=== PATIENT | female | born 1975 | race Caucasian/White ===

== ENCOUNTER → 2020-05-08 15:55 | Outpatient (CLI) | payer OTHER, SELFPAY ==
--- NOTE | ~2020-05-08 | MM_ITS ---
EXAMINATION: MM screening [facility] BI w susie HISTORY: Screening mammogram TECHNIQUE: Craniocaudal and mediolateral oblique 3-D tomosynthesis images were obtained and synthetic 2-D images were generated. CAD analysis was submitted and interpreted. COMPARISON: 03/18/2019, 03/11/2018, 03/06/2013 BREAST PARENCHYMAL COMPOSITION: There are scattered areas of fibroglandular density. FINDINGS: RIGHT BREAST: There is no evidence of suspicious mass, calcification, or architectural distortion to suggest malignancy. There has been no significant interval change. LEFT BREAST: There is asymmetry and possible architectural distortion in the posterior third of the b reast best appreciated 8 cm from the nipple on the craniocaudal view. IMPRESSION: 1. Asymmetry and possible architectural distortion of the left breast. 2. Additional mammographic views and possible breast ultrasound are recommended. BI-RADS Category 0: Incomplete: Needs additional imaging evaluation. Reviewed, dictated and finalized at location A. ACE TENDER IMPRESSION: 1. Asymmetry and possible architectural distortion of the left breast. 2. Additional mammographic views and possible breast ultrasound are recommended . BI-RADS Category 0: Incomplete: Needs additional imaging evaluation.
== END ==
PROVIDERS: Visit Provider Advanced Practice Midwife
DX: Z12.31 Encounter for screening mammogram for malignant neoplasm of breast (principal); R92.8 Other abnormal and inconclusive findings on diagnostic imaging of breast
CPT/HCPCS: 77063; 77067

== ENCOUNTER → 2020-05-31 08:09 | Outpatient (CLI) | payer OTHER, SELFPAY ==
--- NOTE | ~2020-05-31 | MM_ITS ---
EXAMINATION: MM diagnostic mammo unilat LT HISTORY: Asymmetry and possible architectural distortion of the left breast on screening mammogram TECHNIQUE: Additional 3-D tomosynthesis images of the left breast were performed and synthetic 2-D im ages were generated. CAD analysis was submitted and interpreted. COMPARISON: 05/08/2020, 03/18/2019, 03/11/2018 FINDINGS: There is no architectural distortion or persistent asymmetry with spot compression of the l eft breast. There is no evidence of suspicious mass or calcification to suggest malignancy. IMPRESSION: 1. No mammographic evidence of malignancy. 2. Recommend routine screening mammography in one year. BI-RADS Category 1: Negative Reviewed, dictated and finalized at location A. ATION GENERAL MANAGER
== END ==
PROVIDERS: PCP Family Medicine; Visit Provider Advanced Practice Midwife
DX: R92.8 Other abnormal and inconclusive findings on diagnostic imaging of breast (principal)
CPT/HCPCS: 77065

== ENCOUNTER → 2021-05-12 11:40 | Outpatient (CLI) | payer OTHER, SELFPAY ==
--- NOTE | ~2021-05-12 | MM_ITS ---
EXAMINATION: MM screening [facility] [place] BI w susie HISTORY: Screening mammogram TECHNIQUE: Craniocaudal and mediolateral oblique 3-D tomosynthesis images were obtained and synthetic 2-D images were generated. CAD analysis was submitted and interpreted. COMPARISON: 05/31/2020, 05/08/2020, 03/18/2019 BREAST PARENCHYMAL COMPOSITION: There are scattered areas of fibroglandular density. FINDINGS: There is no evidence of suspicious mass, calcification, or architectural distortion to sugg est malignancy in either breast. There has been no suspicious interval change. IMPRESSION: 1. No mammographic evidence of malignancy. 2. Recommend routine screening mammography in one year. BI-RADS Category 1: Negative Reviewed, dictated and finalized at location A. LE BASS PLAYER
== END ==
PROVIDERS: PCP Family Medicine; Visit Provider Advanced Practice Midwife
DX: Z12.31 Encounter for screening mammogram for malignant neoplasm of breast (principal)
CPT/HCPCS: 77063; 77067

== ENCOUNTER → 2022-07-17 15:06 | Outpatient (CLI) | payer BC, SELFPAY ==
--- NOTE | ~2022-07-17 | MM_ITS ---
EXAMINATION: MM screening [facility] BI w susie HISTORY: Screening mammogram TECHNIQUE: Craniocaudal and mediolateral oblique 3-D tomosynthesis images were obtained and synthetic 2-D images were generated. CAD analysis was submitted and interpreted. COMPARISON: 05/12/2021 bilateral screening mammogram 05/31/2020 diagnostic left mammogram 05/08/2020, 03/18/2019 bilateral screening mammogram examinations BREAST PARENCHYMAL COMPOSITION: There are scattered areas of fibroglandular density. FINDINGS: There is no evidence of suspicious mass, calcification, or architectural distortion to sugg est malignancy in either breast. There has been no suspicious interval change. IMPRESSION: 1. No mammographic evidence of malignancy. 2. Recommend routine screening mammography in one year. BI-RADS Category 1: Negative Reviewed, dictated and finalized at location A. RVISOR FISH BAIT PROCESSING
== END ==
PROVIDERS: PCP Emergency Medicine; Visit Provider Nurse Practitioner Obstetrics & Gynecology
DX: Z12.31 Encounter for screening mammogram for malignant neoplasm of breast (principal)
CPT/HCPCS: 77063; 77067

== ENCOUNTER 2023-06-11 00:26 | Day surgery (SDC) | payer BC, SELFPAY ==
[2023-05-18 10:13] VITALS: BMI 35.2
--- NOTE | 2023-06-09 08:25 | SUR.PREOP ---
Patient called regarding upcoming procedure. Reviewed preop instructions, appointment times, and procedure prep.
[2023-06-11 07:25] VITALS: BP 126/75; PULSE 77; RESP 20; TEMP 36.8; O2SAT 100
[2023-06-11] MEDS: LACTATED RINGERS 1,000 ML 150 ML IV CONT (07:44)
--- NOTE | 2023-06-11 08:18 | WPDANESEPPF ---
Anes - Initial Pre Proc Eval Procedure: Operation Date: 06/11/23 08:30 Proposed Procedures p Screening Colonoscopy - Mt Kelley MD Date/Time: 06/11/23 08:18 Surgeon: Mt Kelley MD Pre Op Diagnosis: neoplasm screening Patient Data Age: 47 Gender: F Height: 1.63 m Weight: 91.1 kg Last Vital Signs Temp 98.3 F 06/11/23 07:25 Pulse 77 06/11/23 07:25 Resp 20 06/11/23 07:25 BP 126/75 06/11/23 07:25 Pulse Ox 100 06/11/23 07:25 O2 Del Method Room Air 06/11/23 07:25 Allergies Allergy/AdvReac Type Severity Reaction Status Date / Time No Known Allergies Allergy Mild Verified 06/11/23 07:24 Home Medications Medication Instructions Recorded Confirmed Type bupropion HCl 450 mg 24 hr tablet, 450 mg PO QAM 05/20/22 05/18/23 History extended release cetirizine 10 mg tablet (Zyrtec) 10 mg PO DAILY PRN Sinus Symptoms 05/20/22 05/18/23 History mecobalamin (vitamin B12) 1,000 1,000 mcg PO DAILY 05/20/22 05/18/23 History mcg chewable tablet multivitamin (Daily Multi-Vitamin 1 tablet PO DAILY 05/20/22 05/18/23 History tablet) omega-3 fatty acids 500 mg capsule 500 mg PO DAILY 02/12/23 05/18/23 History Patient hx anesthesia problems: none Family hx anesthesia problems: none Results Review: All pre-operative results and documents have been reviewed as part of the pre-operative evaluation. [facility] Past Medical History Medical History (Updated 02/13/23 @ 09:22 by Frank Mancilla MD) Acute sinusitis, unspecified Other obesity Surgical History Surgical History (Updated 02/12/23 @ 09:51 by Frank Mancilla MD) History of weight loss surgery (~2015) Family History Family History (Updated 02/12/23 @ 09:15 by Archana Jones) Grandparent Carcinoma of colon Breast cancer Mother Acute myocardial infarction Social History Social History (Updated 02/12/23 @ 09:15 by Archana Jones) Social History: Caffeine- coffee Smoking status: Never smoker Alcohol intake: current Alcohol use details: rare occasional Substance use: never Substance use type: does not use Lack of Transportation: No Lack of Food: Never True Current Housing: I Have Housing Concerned About Future Housing: No Difficulty Paying Gas/Electric Bills: No Difficulty Paying for Meds: No Currently Unemployed: No Education: High School Diploma/GED Difficulty w/ Childcare or Family Care: No Living arrangements: with family Spiritual care concerns: No Anes - Eval Final PreProcedure Day of Procedure 06/11/23 08:18 Patient weight: obese Heart: regular rate and rhythm Lungs: clear to auscultation Airway: Mallampati scale class II Neurological: alert and oriented Last oral intake: >/= 8 hours ASA classification: II Emergent: no Anesthetic plan: proceed Anesthesia type and monitoring: general GIVS and standard monitoring Results Review: All pre-operative results and documents have been reviewed as part of the pre-operative evaluation. Informed Consent: The patient's anesthetic plan and its attendant risks and benefits were discussed with the patient/family/POA. Questions were solicited and answers provided to the satisfaction of the patient/family/POA.
--- NOTE | 2023-06-11 08:18 | PM.HPGS ---
History of Present Illness History of Present Illness Consent: Risks, benefits, and alternatives have been discussed and questions answered. Patient agrees to proceed with procedure. Chief complaint: neoplasm screening Narrative: Kaylee Esteban I is a 47 year old female here for first screening colonoscopy Review of Systems Constitutional: Constitutional: Denies headache(s) and Denies weakness Eyes: Eyes: Denies blurry vision ENT: Reports Normal hearing present, Denies headache(s) and Denies neck pain Cardiovascular: Cardiovascular: Denies chest pain and Denies dyspnea Respiratory: Respiratory: Denies dyspnea Gastrointestinal: Gastrointestinal: Reports no additional gastrointestinal complaints Genitourinary: Genitourinary: Denies dysuria Musculoskeletal: Musculoskeletal: Denies neck pain Integumentary/Breasts: Skin/Breast: Denies dry skin Neurologic: Reports Normal hearing present, Denies headache(s) and Denies weakness Psychiatric: Psychiatric: Denies anxiety Endocrine: Endocrine: Denies change in body appearance Hematologic/Lymphatic: Hematologic/Lymphatic: Denies easy bleeding Allergic/Immunologic: Allergic/Immunologic: Denies urticaria PMFSH Past Medical History Medical History (Updated 02/13/23 @ 09:22 by Frank Mancilla MD) Acute sinusitis, unspecified Other obesity Surgical History Surgical History (Updated 02/12/23 @ 09:51 by Frank Mancilla MD) History of weight loss surgery (~2016) Family History Family History (Updated 02/12/23 @ 09:15 by Archana Jones) Grandparent Carcinoma of colon Breast cancer Mother Acute myocardial infarction Social History Social History (Updated 02/12/23 @ 09:15 by Archana Jones) Social History: Caffeine- coffee Smoking status: Never smoker Alcohol intake: current Alcohol use details: rare occasional Substance use: never Substance use type: does not use Lack of Transportation: No Lack of Food: Never True Current Housing: I Have Housing Concerned About Future Housing: No Difficulty Paying Gas/Electric Bills: No Difficulty Paying for Meds: No Currently Unemployed: No Education: High School Diploma/GED Difficulty w/ Childcare or Family Care: No Living arrangements: with family Spiritual care concerns: No Meds Home Medications and Allergies Home Medications Medication Instructions Recorded Confirmed Type bupropion HCl 450 mg 24 hr tablet, 450 mg PO QAM 05/20/22 05/18/23 History extended release cetirizine 10 mg tablet (Zyrtec) 10 mg PO DAILY PRN Sinus Symptoms 05/20/22 05/18/23 History mecobalamin (vitamin B12) 1,000 1,000 mcg PO DAILY 05/20/22 05/18/23 History mcg chewable tablet multivitamin (Daily Multi-Vitamin 1 tablet PO DAILY 05/20/22 05/18/23 History tablet) omega-3 fatty acids 500 mg capsule 500 mg PO DAILY 02/12/23 05/18/23 History Allergies Allergy/AdvReac Type Severity Reaction Status Date / Time No Known Allergies Allergy Mild Verified 06/11/23 07:24 Vital Signs Vital Signs - 24 hr 06/11/23 07:25 Temperature 98.3 F Pulse Rate 77 Respiratory Rate 20 Blood Pressure 126/75 Pulse Oximetry 100 Oxygen Delivery Room Air Exam Const: General: comfortable and no acute distress HENMT: Face/Nose/Sinus: Normal nares present Eyes: General: appearance normal, both eyes and all related structures Neck: Neck: no JVD Resp: Auscultation: clear to auscultation bilaterally Cardio: Rate: regular rate Rhythm: regular rhythm GI: Inspection: non-distended GI Palp: Yes Soft to palpation Skin: General skin exam: normal color Neuro: General: gait normal Speech: normal speech Extrem: General: normal to inspection Psych: Mental Status: mental status grossly normal Assessment and Plan Assessment and plan (1) Encounter for screening colonoscopy: Code(s): Z12.11 - Encounter for screening for malignant neoplasm of colon Status: Acute Asse
[2023-06-11 08:36] VITALS: BP 111/60; PULSE 74; RESP 20; O2SAT 98
[2023-06-11 08:46] VITALS: BP 123/91; PULSE 64; RESP 20; O2SAT 98
[2023-06-11 08:56] VITALS: BP 130/80; PULSE 60; RESP 20; O2SAT 99
== END 2023-06-11 09:08 | disposition home or self-care (01) ==
PROVIDERS: PCP Emergency Medicine; Visit Provider Internal Medicine Gastroenterology
PROC: 0DJD8ZZ Inspection of Lower Intestinal Tract, Via Natural or Artificial Opening Endoscopic (ICD-10-PCS; CPT 45378; principal; 2023-06-11 08:30)
DX: Z12.11 Encounter for screening for malignant neoplasm of colon (principal); K64.8 Other hemorrhoids; E66.9 Obesity, unspecified; Z68.34 Body mass index [BMI] 34.0-34.9, adult
CPT/HCPCS: 45378; J2704; J7120

== ENCOUNTER 2023-08-17 12:30 | Outpatient (CLI) | payer BC, SELFPAY ==
--- NOTE | ~2023-08-17 | MM_ITS ---
EXAMINATION: MM screening [facility] BI w susie HISTORY: Screening mammogram TECHNIQUE: Craniocaudal and mediolateral oblique 3-D tomosynthesis images were obtained and synthetic 2-D images were generated. CAD analysis was submitted and interpreted. COMPARISON: July 17, 2022, May 12, 2021 bilateral screening mammogram examinations BREAST PARENCHYMAL COMPOSITION: There are scattered areas of fibroglandular density. FINDINGS: There is no evidence of suspicious mass, calcification, or architectural distortion to sugg est malignancy in either breast. There has been no suspicious interval change. IMPRESSION: 1. No mammographic evidence of malignancy. 2. Recommend routine screening mammography in one year. BI-RADS Category 1: Negative Reviewed, dictated and finalized at location A.
== END 2023-08-17 12:31 ==
PROVIDERS: PCP Emergency Medicine; Visit Provider Nurse Practitioner Obstetrics & Gynecology
DX: Z12.31 Encounter for screening mammogram for malignant neoplasm of breast (principal)
CPT/HCPCS: 77063; 77067

== ENCOUNTER 2024-08-18 10:04 | Outpatient (CLI) | payer BC, SELFPAY ==
--- NOTE | ~2024-08-18 | MM_ITS ---
EXAMINATION: MM screening [facility] BI w susie HISTORY: Screening TECHNIQUE: Craniocaudal and mediolateral oblique 3-D tomosynthesis images were obtained and synthetic 2-D images were generated. CAD analysis was submitted and interpreted. COMPARISON: 08/17/2023 and dating back to 05/08/2020 BREAST PARENCHYMAL COMPOSITION: There are scattered areas of fibroglandular density. FINDINGS: Punctate calcifications are detected bilaterally, stable and benign in appearance. Stable parenchymal pattern without suspicious microcalcifications, architectural distortion, discrete masses or significant asymmetry. IMPRESSION: 1. No mammographic evidence of malignancy. 2. Recommend routine screening mammography in one year. BI-RADS Category 2: Benign finding(s). Reviewed, dictated and finalized at location A.
== END 2024-08-18 10:05 | disposition home or self-care (01) ==
LOC: MICIMG 10:05
PROVIDERS: PCP Obstetrics & Gynecology; Visit Provider Obstetrics & Gynecology
DX: Z12.31 Encounter for screening mammogram for malignant neoplasm of breast (principal)
CPT/HCPCS: 77063; 77067

== ENCOUNTER 2024-11-23 15:32 | Emergency (ER) | payer BC, SELFPAY ==
--- NOTE | ~2024-11-23 | XR_ITS ---
XR ankle LT min 3V Ordering provider: Kinjal Viveros APRN History: . pain injury 2 weeks . Comparison: None. FINDINGS: BONES: No acute fracture or dislocation. JOINT SPACES: The ankle mortise is normal. SOFT TISSUES: Normal. Calcaneal spur. IMPRESSION: No acute osseous abnormality left ankle. Reviewed, dictated and finalized at location A.
--- OUTSIDE RECORDS SUMMARY | 2024-11-23 15:34 | XMS_ITS | Referral Summary ---
Author Organization [facility] Address [address] [place] [address] Care Team Providers Care Cheese Maker Name Role Phone Fausto Rodriguez MD Primary Care Provider [phone] Allergies Active Allergy Reactions Criticality Noted Date Comments Nitrofurantoin Itching Low 07/26/2022 Medications loratadine (CLARITIN) 10 mg tablet TAKE 1 TABLET AT BEDTIME. 6 Active biotin 10 mg tablet Active calcium citrate-vitamin D3 250 mg calcium- 200 unit tablet Active multivitamin tabletIndications:V itamin Deficiency Prevention Active olopatadine (PATADAY) 0.2 % ophthalmic solutionIndications :Allergic Conjunctivitis daily. 6 Active cyanocobalamin (Vitamin B-12) 100 mcg tabletIndications:P revention of Vitamin B12 Deficiency Active buPROPion XL (WELLBUTRIN XL) 300 mg 24 hr tablet 8 Active vitamin E (AQUASOL E) 100 unit capsule Take 100 Units by mouth daily Active fluconazole (DIFLUCAN) 150 mg tabletIndications:A ntibiotic-induced yeast infection Take 1 tablet (150 mg total) by mouth as directed Take one tab now. Repeat in 7 days if symptoms persist. 2 tablet 3 Active Active Problems Problem Noted Date Diagnosed Date History of bariatric surgery 11/02/2016 Intestinal malabsorption 11/02/2016 BMI 45.0-49.9, adult 05/06/2016 Eating disorder 10/30/2015 Morbid obesity 09/19/2015 Social History Tobacco Use Types Packs/Day Years Used Date Smoking Tobacco: Never Comments Unknown Sex and Gender Information Value Date Recorded Sex Assigned at Not on file Legal Sex Female 11:18 AM X RAY DEVELOPER Gender Identity Female 07/11/2019 12:58 PM X RAY DEVELOPER Sexual Orientation Straight 07/11/2019 12 :58 PM X RAY DEVELOPER Last Filed Vital Signs Vital Sign Reading Time Taken Comments Blood Pressure 128/68 07/26/2022 1:55 PM X RAY DEVELOPER Pulse 61 07/05/2019 8:01 AM X RAY DEVELOPER Temperature 37.1 C (98.8 F) 07/26/2022 1:55 PM X RAY DEVELOPER Respiratory Rate 19 07/26/2022 1:55 PM X RAY DEVELOPER Oxygen Saturation 98% 05/21/2016 12: 30 PM X RAY DEVELOPER Inhaled Oxygen Concentration - - Weight 89.7 kg (197 lb 12.8 oz) 07/26/2022 1:55 PM X RAY DEVELOPER Height 161.3 cm (5' 3.5) 07/26/2022 1:55 PM X RAY DEVELOPER Body Mass Index 34.49 07/26/2022 1:55 PM X RAY DEVELOPER Plan of Treatment Not on file Insurance [facility] CHOICE PLUS CHOICE PRF PPO [place] Care Teams Cheese Maker Relationship Specialty Start Date End Date Fausto Rodriguez MD [address] [place] [address] PCP - General 09/22/16
--- OUTSIDE RECORDS SUMMARY | 2024-11-23 15:34 | XMS_ITS | Clinical Summary ---
Author Organization [facility] Address [address] [place] [id number] Care Team Providers Care Delinquent Tax Collection Assistant Name Role Phone Unavailable Primary Care Provider Unavailabl e Social History Tobacco Use Types Packs/Day Years Used Date Smoking Tobacco: Never Assessed Comments Unknown Sex and Gender Information Value Date Recorded Sex Assigned at Not on file Legal Sex Female 6:08 PM CDT Gender Identity Not on file Sexual Orientation Not on file Plan of Treatment Health Maintenance Due Date Last Done Comments Cervical Cancer Screening Pa p Smear (Age 30 to 64) Every 3 Years 1977 Colorectal Cancer Screening Colonoscopy (10 Years) 1977 Annual Physical 1980 Hepatitis C 10/07/1995 DTaP, Tdap and Td Vaccines ( 1 - Tdap) 1996 Hepatitis B Vaccines (1 of 3 - 19+ 3-dose series) 1996 Cervical Cancer Screening Pa p with HPV Testing (Age 30 to 64) Every 5 Years 10/07/2007 Cervical Cancer Screening with HPV 10/07/2007 Mammogram Screening 2017 COVID-19 Vaccine (2023-2 5 season) 2024 Meningococcal B Vaccine Aged Out No l onger eligible based on patient's age to complete this topic Meningococcal Vaccine Aged Out No asiya kimmy eligible based on patient's age to complete this topic Pneumococcal Vaccine: Pediat rics (0 to 5 Years) and At-Risk Patients (6 to 49 Years) Aged Out No longer eligible b ased on patient's age to complete this topic RSV Immunizations Under 20 Months Aged Out No longer eligible based on patient's age to complete this topic
--- OUTSIDE RECORDS SUMMARY | 2024-11-23 15:34 | XMS_ITS | Clinical Summary ---
Author Organization [facility] Address [address] [place] [address] Care Team Providers Care Enameler Name Role Phone Fausto Rodriguez MD Primary Care Provider [phone] Allergies Active Allergy Reactions Criticality Noted Date [...] 05/06/2016 Eating disorder 10/30/2015 Morbid obesity 09/19/2015 Surgical History Surgery Date Site/Laterality Comments SLEEVE GASTROPLASTY Medical History Medical History Date Comments History of section History of tonsillectomy History of sleeve gastrectomy 05/19/2016 Family History Medical History Relation Name Comments Heart disease Mother Family history of cardiac disorder - (Added by TW Conv) Hypertension Mother Family history of hypertension - (Added by TW Conv) Obesity Mother Family history of obesity - (Added by TW Conv) Obesity Other 1 Family history of obesity - Relation: Grandparent (Added by TW Conv) Heart disease Other 2 Family history of cardiac disorder - Relation: Grandparent (Added by TW Conv) Hypertension Other 3 Family history of hypertension - Relation: Grandparent (Added by TW Conv) Cancer Other 4 Family history of malignant neoplasm - Relation: Grandparent (Added by TW Conv) Relation Name Status Comments Mother Other 1 Other 2 Other 3 Other 4 Social History Tobacco Use Types Packs/Day Years Used Date Smoking Tobacco: Never Comments Unknown Sex and Gender Information Value Date Recorded Sex Assigned at Not on file Legal Sex Female 11:18 AM PROCUREMENT INTERNSHIP Gender Identity Female 07/11/2019 12:58 PM PROCUREMENT INTERNSHIP Sexual Orientation Straight 07/11/2019 12 :58 PM PROCUREMENT INTERNSHIP Obstetrics History Last Filed Vital Signs Vital Sign Reading Time Taken Comments Blood Pressure 128/68 07/26/2022 1:55 PM PROCUREMENT INTERNSHIP Pulse 61 07/05/2019 8:01 AM PROCUREMENT INTERNSHIP Temperature 37.1 C (98.8 F) 07/26/2022 1:55 PM PROCUREMENT INTERNSHIP Respiratory Rate 19 07/26/2022 1:55 PM PROCUREMENT INTERNSHIP Oxygen Saturation 98% 05/21/2016 12: 30 PM PROCUREMENT INTERNSHIP Inhaled Oxygen Concentration - - Weight 89.7 kg (197 lb 12.8 oz) 07/26/2022 1:55 PM PROCUREMENT INTERNSHIP Height 161.3 cm (5' 3.5) 07/26/2022 1:55 PM PROCUREMENT INTERNSHIP Body Mass Index 34.49 07/26/2022 1:55 PM PROCUREMENT INTERNSHIP Plan of Treatment Health Maintenance Due Date Last Done Comments Breast Cancer Screening-Mammogram 1977 Cervical Cancer Screening 1977 Colon Cancer Screening-Colonoscopy 1977 Depression Screening 1977 Hepatitis C Screening 1977 Hepatitis B Screening 10/07/1995 Regular Well Visit/Exam 18-64 10/07/1995 Influenza Vaccine (#1) 2025 8, 03/13/2015 DTaP/Tdap/Td Vaccine (2 - Td or Tdap) 03/04/2028 03/04/2018 Pneumococcal vaccine <65 Aged Out No longer eligible based on patient's age to complete this topic Insurance [facility] CHOICE PLUS CHOICE PRF PPO [place] Care Teams Enameler Relationship Specialty Start Date End Date Fausto Rodriguez MD [address] [place] [address] (work) PCP - General 09/22/16
--- OUTSIDE RECORDS SUMMARY | 2024-11-23 15:35 | XMS_ITS | Data Portability ---
Author Organization [facility] Address [address] [place] [address] Care Team Providers Care Waitress Name Role Phone ROSALVA WILFRID Primary Care Provider WENDY SIERRA Primary Care Provider [phone] MAX MEDINA Primary Care Provider Assessment Encounter Date Assessment Date Assessment LastModified by Organization Details LastModified Time 03/15/2020 03/15/2020 Annual gynecological exam performed. Patient will come back in a year unless there are new symptoms. [email or web address] Not available 03/15/2020 14:43:13 04/11/2021 04/11/2021 Annual gynecological exam performed. Patient will come back in a year unless there are new symptoms. Suggest Calcium with Vitamin D if not eating in diet. Patient advised to get annual flu shot. Recommend yearly physicals and preform monthly breast exams. Genetic testing is available for patients with family history of cancer. Engage in safe sexual practices, use condoms. Encouraged to have daily exercise. Avoid tobacco and illicit drugs, moderation of alcohol. If BMI greater than 25 dietary consult advised. If you have any questions please call or email. pt on max dose of wellbutrin, rec take divided doses , mammogram order given Not available 04/11/2021 11:36:21 04/29/2022 04/29/2022 Annual gynecological exam performed. Patient will come back in a year unless there are new symptoms. [email or web address] Not available 04/29/2022 15:45:43 05/11/2023 05/11/2023 Annual gynecological exam performed. Patient will come back in a year unless there are new symptoms. [email or web address] Not available 05/11/2023 15:32:40 05/15/2024 05/15/2024 Annual gynecological exam performed. Patient will come back in a year unless there are new symptoms. [email or web address] Not available 05/15/2024 09:08:32 Plan of Treatment Reminders Order Date Submit Date Provider Last Modified By Organization Details Last Modified Time Details Appointments None recorded. Lab CBC w/ auto diff 2023 [facility] (Lab), [address], [place], [address], 5 05:26:35 CMP, serum or plasma 2023 024 [facility] (Lab), [address], [place], [address], 5 05:26:36 lipid panel, blood 2023 024 [facility] (Lab), [address], [place], [address], 5 05:26:36 TSH, serum or plasma 2023 024 [facility] (Lab), [address], [place], [address], 5 05:26:36 HbA1c (hemoglobi n A1c), blood 2023 024 [facility] (Lab), [address], [place], [address], 5 05:26:36 CMP, serum or plasma 2021 022 [facility] (Lab), [address], [place], [address], 2 11:41:39 lipid panel, blood 2021 022 [facility] (Lab), [address], [place], [address], 2 11:41:39 HbA1c (hemoglobi n A1c), blood 2021 022 [facility] (Lab), [address] [facility] [facility], [place], [address], 3 05:01:34 CBC w/ auto diff 2021 022 [facility] (Lab), [address], [place], [address], 2 11:41:39 TSH, serum or plasma 2021 [facility] (Lab), [address], [place], [address], 2 11:41:39 Referral primary care provider referral 2021 [facility] Not available 3 05:01:34 Procedures None recorded. Surgeries None recorded. Imaging MAMMO, screening, digital, bilateral 2023 024 [facility], [address], [place], [address], 5 05:01:25 MAMMO, screening, bilateral 2022 023 [email or web address] [facility], [address], [place], [address], 4 15:35:02 MAMMO, screening, bilateral 2021 022 [facility], [address], [place], [address], 3 18:32:36 Medication Orders bupropion HCl XL 150 mg 24 hr tablet, extended release 2023 024 [facility], [address] [place], [address], 4 09:22:29 bupropion HCl XL 300 mg 24 hr tablet, extended release 2023 024 [facility], [address] [place], [address], 4 09:22:29 bupropion HCl XL 150 mg 24 hr tablet, extended release 2022 023 [facility], [address] [place], [address], 3 15:50:20 bupropion HCl XL 300 mg 24 hr tablet, extended release 2022 023 [facility], [address] [place], [address], 3 15:50:20 bupropion HCl XL 150 mg 24 hr tablet, extended release 2021 022 [place] [facility], [address] [place] [address], [address], [place], [place], [id number], 2 16:05:54 bupropion HCl XL 300 mg 24 hr tablet, extended release 2021 022 [place] [address] [facility], [address] [place] [address], [address], [place], [place], [id number], 2 21:03:45 Wellbutrin XL 150 mg 24 hr tablet, extended release 2020 021 [facility], [address] [place], [address], 1 11:36:01 Wellbutrin XL 300 mg 24 hr tablet, extended release 2020 021 [facility], [address] [place], [address], 1 11:36:01 Wellbutrin XL 300 mg 24 hr tablet, extended release 2019 020 [facility], [address] [place] [address], [address], 0 16:35:09 Patient TargetsNo targets recorded. Patient Instructions Encounter Date Encounter Id Patient Instructions Last Modified By Organization Details Last Modified Time 03/15/2020 [id number] mammogram order given, counseling list, monitor cycles, call if needs anything, rf wellbutrin. Suggest Calcium with Vitamin D if not eating in diet. Patient advised to get annual flu shot. Recommend yearly physicals and preform monthly breast exams. Genetic testing is available for patients with family history of cancer. Engage in safe sexual practices, use condoms. Encouraged to have daily exercise. Avoid tobacco and illicit drugs, moderation of alcohol. If BMI greater than 25 dietary consult advised. If you have any questions please call or email. [email or web address] Not available 03/15/2020 15:10:34 Reason for Referral Primary Care Provider Referr al for Adult health examination Referring Physician: Agatha Lane, EASTER BUNNY, Encounter Date: 04/29/2022 Results Created Date Observation Date Name Description Value Unit Range Abnormal Flag Note LastModifiedBy Organization Detail LastModifiedTime 03/15/20 20 03/28/2020 pap, LB Pap test thin prep Negati ve for Intrae pithel ial Lesion or Malign aurelio normal ACCES SUJIT #: [id number] Sourc e: Cervi rolando/E ndoce rvica l LMP: 03/03 Date Taken : 03/15 Speci men Type: ThinP rep Vial Date Repor becky: 2019 Clini rolando Data: Cytot ech: Marty allison Carne y, CT( CP) Date Repor becky: 03/18 Speci men Adequ acy: Satis facto ry for evalu ation Endoc ervic al/tr ansfo rmati on zone compo nent prese nt Gener al Categ oriza tion: NEGAT NORMAN FOR INTRA EPITH ELIAL LESIO N OR MALIG MOLLY The follo wing tests have been order ed as reque sted and a separ ate repor t will be issue d: Broam keniaa, Gonor rhoea e, and Trich omona s This speci men has been dwight zed by the ThinP rep Imagi claus chatman, an inter activ e compu johns which molina ts the lab in the mar vasquezg of ThinP rep Pap Test slide sRachana dillon imagi ng, the slide was revie wed by a Cytot echno logis t and/o r Patho logis t. D N A A S S A Y S R E P O R T TEST NAME RESUL TS ----- ---- ----- -- HPV High Risk Mar syed (TMA) ThinP rep Vial The human papil lomav irus (HPV) High Risk Mar syed is an FDA-a pprov ed in-vi tro ampli fied nucle ic acid test for the quali tativ e detec tion of E6/E7 viral mRNA. Resul ts shoul d be corre lated with patie nt prese ntati on, histo ry, cervi rolando cytol ogy and other clini rolando and labor atory findi ngs. See https ://Fast Orientation/s ites/ defau lt/fi les/2 018-0 3/AW- 70350 _002_ 01.pd f for john syed. Test perfo rmed by [facility], d/b/a Path [facility], [address], [place] [address] , Salud Espinosa ra, DO, Labor atory [facility]. HPV High Risk *HPV NOT DETEC BECKY (TYPE S 16, 18, 31, 33, 35, 39, 45, 51, 52, 56, 58, 59, 66, 68) *HPV: The human papil lomav irus (HPV) High Risk Mar syed is an FDA-a pprov ed in-vi tro ampli fied nucle ic acid test for the quali tativ e detec tion of E6/E7 viral mRNA. Resul ts shoul d be corre lated with patie nt prese ntati on, histo ry, cervi rolando cytol ogy and other clini rolando and labor atory findi ngs. See https ://ww w.Cloud Direct/s ites/ defau lt/fi les/2 018-0 3- 53431 _002_ 01.pd f for john clare burgosr charmaine syed. Test perfo rmed by [employer] [facility] [employer], [employer], d/b/a Path [facility], [address], [place] [address] , Salud Espinosa ra, DO, Labor atory Dire tor. End of t Techn ical servi delmer provi ded by [facility], d/b/a [facility], [address] [place] [address] Rodrigo Jane MD, [facility]. Case revie wed and diagn osis rende red at [facility], [employer], d/b/a Path [employer], [address] [place] [address] Rodrigo Jane MD, [facility]. CONFI DENTI AL Not Available [facility] ([facility]) [address], [place], [address], 03/28/2020 13:57:57 03/15/20 20 03/17/2020 CT + NG DNA, PCR, unspe cifie d speci men trichomonas vaginalis, aptima (panther) NOT DETECT ED normal DNA testi ng perfo rmed by Trans c[employer] Media becky Ampli ficat ion (TMA) These resul ts shoul d be inter prete d in light of all clini rolando and labor atory findi ngs. This assay is highl y accur ate, but rare false posit norman and negat norman resul ts may occur . Posit norman resul ts in low preva lence popul ation s may requi re re-ev aluat ion. A negat norman resul t does not precl ude a possi ble infec tion due to a speci men inade quacy or sampl ing error . Test perfo rmed by [employer] [facility] log[facility], [employer], d/b/a [facility]G [facility], [address] [facility] [address], [place] [address] , Salud Espinosa ra, DO, Labor atory Direc tor. Not Available [facility] ([facility]) [address] [place] [address] [address], [place], [address], 03/18/2020 17:11:06 03/15/20 20 03/17/2020 CT + NG DNA, PCR, unspe cifie d speci men neisseria gonorrhoeae, aptima NOT DETECT ED normal DNA testi ng perfo rmed by Trans [employer] Media becky Ampli ficat ion (TMA) These resul ts shoul d be inter prete d in light of all clini rolando and labor atory findi ngs. This assay is highl y accur ate, but rare false posit norman and negat norman resul ts may occur . Posit norman resul ts in low preva lence popul ation s may requi re re-ev aluat ion. A negat norman resul t does not precl ude a possi ble infec tion due to a speci men inade quacy or sampl ing error . Test perfo rmed by [facility], [employer], d/b/a [facility]oup, [address] [facility] [address], [place] [address] , Salud Espinosa ra, , Labor atory Direc tor. Not Available [facility] ([facility]) [facility] [address], [place], [address], 03/18/2020 17:11:06 03/15/20 20 03/17/2020 CT + NG DNA, PCR, unspe cifie d speci men chlamydia trachomatis, aptima NOT DETECT ED normal DNA testi ng perfo rmed by Trans cript ion Media becky Ampli ficat ion (TMA) These resul ts shoul d be inter prete d in light of all clini rolando and labor atory findi ngs. This assay is highl y accur ate, but rare false posit norman and negat norman resul ts may occur . Posit norman resul ts in low preva lence popul ation s may requi re re-ev aluat ion. A negat norman resul t does not precl ude a possi ble infec tion due to a speci men inade quacy or sampl ing error . Test perfo rmed by [employer] [facility] [employer], d/b/a PathG [facility]oup, [address], [place] [address] , Salud Espinosa ra, , Labor atory Direc tor. Not Available [facility] ([facility]) [address], [place], [address], 03/18/2020 17:11:06 03/15/20 20 03/28/2020 HPV DNA, high- risk HPV high risk NOT DETECT ED normal The human papil lomav irus (HPV) High Risk Mar syed is an FDA-a pprov ed in-vi tro ampli fied nucle ic acid test for the quali tativ e detec tion of E6/E7 viral mRNA. Resul ts shoul d be corre lated with patifaiza nt prese ntati on, histo ry, cervi rolando cytol ogy and other clini rolando and labor atory findi ngs. See https ://Fast Orientation/s ites/ defau lt/fi les/2 018-0 3/AW- 61843 _002_ 01.pd f for john sparks infor charmaine ysed. Test perfo rmed by [employer] [facility] [employer], d/b/a [facility]G roup, [address], [place] [address] , Salud Espinosa ra, DO, Labor atory Direc tor. Not Available [facility] ([facility]) [address], [place], [address], 03/28/2020 13:57:58 04/11/20 21 04/11/2021 IMAGE GUIDE D PAP AND HPV REGAR DLESS image guided Pap, HPV regardless of Pap result SEE RESULT S BELOW CASE REPOR T: Cytol ogy Gynec ologi rolando Repor t Case: [id number] Autho atilio emir Provi omi: Oral lemosJalenah Aline, CRISTINA Howard cted: 04/11 1130 Order ing Locat ion: [place] Patho logy Recei amy: 04/12 0014 First Scree n: Lily Toussaint , CT Rescr een: Dread whitley, Galilea , CT Speci men: Mar le Pap - Image d, Cervi x STATE MENT OF ADEQU ACY: Satis facto ry for evalu ation Trans forma tion zone compo nent prese nt FINAL DIAGN OSIS: Negat norman for Intra epith elial Lesio n or Linda mitchell (NIL) . Elect araceli mays julia d by Galilea Dunn , CT on 04/22 at 12:30 PM ----- ----- ----- ----- ----- ----- ----- ----- ----- ----- ----- ----- ----- ----- ----- ----- ----- ---- HPV RESUL TS: HPV mRNA E6/E7 : No HPV mRNA Detec becky NOTE: This high risk HPV mRNA assay detec ts fourt een high- risk HPV types (16, 18, 31, 33, 35, 39, 45, 51, 52, 56, 58, 59, 66, 68) witho ut diffe renti ation . COMME NT: Note: This speci men was revie wed by a Cytot echno logis t and/o r Patho logis t (as indic ated in this repor t) after evalu ation using the Thinp rep Imagi ng Syste m. CLINI ROLANDO INFOR MATIO N: Menst rual Statu s: LMP (if appli cable ): Clini rolando Histo ry/Pr eviou s Pap: Type of Neopl hunter (if appli cable ): Signi fican t Clini rolando Findi ngs: Other Histo ry: Hormo chalo (if appli cable ): PAP EDUCA AUGIE L NOTE: The Pap Test is a scree rey test with an inher ent false negat norman rate. Liqui d-bas e sampl ing may decre ase, but will not elimi juan carlos, false negat norman resul ts. A negat norman resul t does not precl ude the prese nce and/o r devel opmen t of disea se, since the prese nce of abnor mal cells in the sampl e depen ds on the locat ion of the lesio n and sampl ing techn ique. Zulma nued regul ar scree rey is the best metho d of cance r preve ntion . If repor becky cytol ogic findi ng do not corre late with physi rolando and/o r histo rical findi ngs, furth er inves tigat ion is recom kiesha d, as clini lion warra nted. 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 Susan mays julia d by Reanna Trejo ica on 2021 at 4:34 PM ----- ----- ----- ----- ----- ----- ----- ----- ----- ----- ----- ----- ----- ----- ----- ----- ----- ---- HPV RESUL TS: HPV mRNA E6/E7 : No HPV mRNA Detec becky NOTE: This high risk HPV mRNA assay detec ts fourt een high- risk HPV types (16, 18, 31, 33, 35, 39, 45, 51, 52, 56, 58, 59, 66, 68) witho ut diffe renti ation . COMME NT: Note: This speci men was revie wed by a Cytot echno logis t and/o r Patho logis t (as indic ated in this repor t) after evalu ation using the Thinp rep Imagi ng Syste m. CLINI ROLANDO INFOR MATIO N: Menst rual Statu s: LMP (if appli cable ): Clini rolando Histo ry/Pr eviou s Pap: Type of Neopl hunter (if appli cable ): Signi fican t Clini rolando Findi ngs: Other Histo ry: Hormo chalo (if appli cable ): PAP EDUCA AUGIE L NOTE: The Pap Test is a scree rey test with an inher ent false negat norman rate. Liqui d-bas ed sampl ing may decre ase, but will not elimi juan carlos, false negat norman resul ts. A negat norman resul t does not precl ude the prese nce and/o r devel opmen t of disea se, since the prese nce of abnor mal cells in the sampl e depen ds on the locat ion of the lesio n and sampl ing techn ique. Zulma nued regul ar scree rey is the best metho d of cance r preve ntion . If repor becky cytol ogic findi ng do not corre late with physi rolando and/o r histo rical findi ngs, fur er inves tigat ion is recom kiesha d, as clini lion gray nted. 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 Elect araceli mays julia d by Shalini Cam, CT on 05/13 at 2:08 PM ----- ----- ----- ----- ----- ----- ----- ----- ----- ----- ----- ----- ----- ----- ----- ----- ----- ---- HPV RESUL TS: HPV mRNA E6/E7 : No HPV mRNA Detec becky NOTE: This high risk HPV mRNA assay detec ts fourt een high- risk HPV types (16, 18, 31, 33, 35, 39, 45, 51, 52, 56, 58, 59, 66, 68) witho ut diffe renti ation . COMME NT: This speci men was revie wed by a Cytot echno logis t and/o r Patho logis t (as indic ated in this repor t) after evalu ation using the Thinp rep Imagi ng Syste m. CLINI ROLANDO INFOR MATIO N: Menst rual Statu s: LMP (if appli cable ): Clini rolando Histo ry/Pr eviou s Pap: Type of Neopl hunter (if appli cable ): Signi fican t Clini rolando Findi ngs: Other Histo ry: Hormo chalo (if appli cable ): PAP EDUCA AUGIE L NOTE: The Pap Test is a scree rey test with an inher ent false negat norman rate. Liqui d-bas ed sampl ing may decre ase, but will not elimi juan carlos, false negat norman resul ts. A negat norman resul t does not precl ude the prese nce and/o r devel opmen t of disea se, since the prese nce of abnor mal cells in the sampl e depen ds on the locat ion of the lesio n and sampl ing techn ique. Zulma nued regul ar scree rey is the best metho d of cance r preve ntion . If repor becky cytol ogic findi ng do not corre late with physi rolando and/o r histo rical findi ngs, furth er inves tigat ion is recom kiesha d, as clini lion gray nted. Not Available [facility] (Lab) [address] [place], [address], 05/13/2023 15:12:09 06/01/19 25 06/01/2024 CBC W/DIF F WBC 6.0 10'3/ uL 3.5-10 .5 Not Available [facility] ([facility]) [address], [place], [address], 06/02/2024 05:26:35 06/01/19 25 06/01/2024 CBC W/DIF F RBC 4.06 10'6/ uL (based on docume nted legal sex) 3.80-5 .20 Not Available [facility] (Lab) [address], [place], [address], 06/02/2024 05:26:35 06/01/19 25 06/01/2024 CBC W/DIF F HGB 11.9 g/dL (based on docume nted legal sex) 11.6-1 5.4 Not Available [facility] ([facility]) [address], [place], [address], 06/02/2024 05:26:35 06/01/19 25 06/01/2024 CBC W/DIF F HCT 38.2 % (based on docume nted legal sex) 34.0-4 5.0 Not Available [facility] (Lab) [address], [place], [address], 06/02/2024 05:26:35 06/01/19 25 06/01/2024 CBC W/DIF F MCV 94.1 fL 80.0-9 9.0 Not Available [facility] (Lab) [address], [place], [address], 06/02/2024 05:26:35 06/01/19 25 06/01/2024 CBC W/DIF F MCH 29.3 pg 27.0-3 4.0 Not Available [facility] ([facility]) [address], [place], [address], 06/02/2024 05:26:35 06/01/19 25 06/01/2024 CBC W/DIF F MCHC 31.2 g/dL 32.0-3 5.5 low Not Available [facility] ([facility]) [address], [place], [address], 06/02/2024 05:26:35 06/01/19 25 06/01/2024 CBC W/DIF F RDW 13.4 % 11.0-1 5.0 Not Available [facility] ([facility]) [address], [place], [address], 06/02/2024 05:26:35 06/01/19 25 06/01/2024 CBC W/DIF F plt 320 10'3/ uL 150-40 0 Not Available [facility] (Lab) [address], [place], [address], 06/02/2024 05:26:35 06/01/19 25 06/01/2024 CBC W/DIF F MPV 11.4 fL 8.8-12 .1 Not Available [facility] (Lab) [address], [place], [address], 06/02/2024 05:26:35 06/01/19 25 06/01/2024 CBC W/DIF F neutrophils 53.6 % 34.0-7 3.0 Not Available [facility] ([facility]) [address], [place], [address], 06/02/2024 05:26:35 06/01/19 25 06/01/2024 CBC W/DIF F lymphocytes 33.2 % 15.0-5 0.0 Not Available [facility] (Lab) [address], [place], [address], 06/02/2024 05:26:35 06/01/19 25 06/01/2024 CBC W/DIF F monocytes 9.0 % 1.0-15 .0 Not Available [facility] (Lab) [address], [place], [address], 06/02/2024 05:26:35 06/01/19 25 06/01/2024 CBC W/DIF F eosinophils 2.5 % 0.0-8. 0 Not Available [facility] (Lab) [address], [place], [address], 06/02/2024 05:26:35 06/01/19 25 06/01/2024 CBC W/DIF F basophils 1.5 % 0.0-2. 0 Not Available [facility] ([facility]) [address], [place], [address], 06/02/2024 05:26:35 06/01/19 25 06/01/2024 CBC W/DIF F immature granulocytes 0.2 % no define d refere nce range Immat ure Granu locyt es (IG) repre sents autom ated enume ratio n of Metam yeloc ytes, Myelo cytes and Promy elocy russell when IG is < 5%. Blast s are not inclu ded in IG and repor becky separ ately if prese nt. Not Available [facility] (Lab) [address], [place], [address], 06/02/2024 05:26:35 06/01/19 25 06/01/2024 CBC W/DIF F absolute neutrophils 3.2 10'3/ uL 1.5-8. 0 Not Available [facility] (Lab) [address], [place], [address], 06/02/2024 05:26:35 06/01/19 25 06/01/2024 CBC W/DIF F absolute lymphocytes 2.0 10'3/ uL 1.0-4. 0 Not Available [facility] ([facility]) [address], [place], [address], 06/02/2024 05:26:35 06/01/19 25 06/01/2024 CBC W/DIF F absolute monocytes 0.5 10'3/ uL 0.2-1. 0 Not Available [facility] ([facility]) [address], [place], [address], 06/02/2024 05:26:35 06/01/19 25 06/01/2024 CBC W/DIF F absolute eosinophils 0.2 10'3/ uL 0.0-0. 6 Not Available [facility] ([facility]) [address], [place], [address], 06/02/2024 05:26:35 06/01/19 25 06/01/2024 CBC W/DIF F absolute basophils 0.1 10'3/ uL 0.0-0. 3 Not Available [facility] (Lab) [address], [place], [address], 06/02/2024 05:26:35 06/01/19 25 06/01/2024 CBC W/DIF F absolute immature granulocytes 0.0 10'3/ uL 0.00-0 .10 Refer ence range s for nonbi nary/ inter sex or unspe cifie d gende r patie nts have not been estab lishe d. Rhonda lafleur refer to the abbe dillon table for range s estab lishe d for cisge nder patie nts and evalu ate in the clini rolando suma xt of the indiv idual patie nt: https ://anibal celeste book. nm.or g/Gen derX Not Available [facility] (Lab) [address], [place], [address], 06/02/2024 05:26:35 06/01/19 25 06/01/2024 CMP(C OMPRE HENSI VE METAB OLIC PANEL ) sodium 139 mmol/ L 133-14 6 Not Available [facility] (Lab) [address], [place], [address], 06/02/2024 05:26:36 06/01/19 25 06/01/2024 CMP(C OMPRE HENSI VE METAB OLIC PANEL ) potassium 4.3 mmol/ L 3.5-5. 1 Not Available [facility] (Lab) [address], [place], [address], 06/02/2024 05:26:36 06/01/19 25 06/01/2024 CMP(C OMPRE HENSI VE METAB OLIC PANEL ) chloride 105 mmol/ L 98-107 Not Available [facility] (Lab) [address] [place], [address], 06/02/2024 05:26:36 06/01/19 25 06/01/2024 CMP(C OMPRE HENSI VE METAB OLIC PANEL ) carbon dioxide 27 mmol/ L 21-31 Not Available [facility] (Lab) [address], [place], [address], 06/02/2024 05:26:36 06/01/19 25 06/01/2024 CMP(C OMPRE HENSI VE METAB OLIC PANEL ) anion gap 7 mmol/ L 4-13 Not Available [facility] (Lab) [address], [place], [address], 06/02/2024 05:26:36 06/01/19 25 06/01/2024 CMP(C OMPRE HENSI VE METAB OLIC PANEL ) blood urea nitrogen 19 mg/dL 7-25 Not Available [facility] (Lab) [address], [place], [address], 06/02/2024 05:26:36 06/01/19 25 06/01/2024 CMP(C OMPRE HENSI VE METAB OLIC PANEL ) creatinine 0.87 mg/dL 0.60-1 .30 Not Available [facility] (Lab) [address], [place], [address], 06/02/2024 05:26:36 06/01/19 25 06/01/2024 CMP(C OMPRE HENSI VE METAB OLIC PANEL ) egfrcr (CKD-epi 2020) 83 mL/mi n/1.7 3_m2 >=60 Not Available [facility] (Lab) [address], [place], [address], 06/02/2024 05:26:36 06/01/19 25 06/01/2024 CMP(C OMPRE HENSI VE METAB OLIC PANEL ) calcium 9.4 mg/dL 8.3-10 .5 Not Available [facility] (Lab) [address], [place], [address], 06/02/2024 05:26:36 06/01/1906/01/2024 CMP(C OMPRE HENSI VE METAB OLIC PANEL ) glucose 78 mg/dL 70-100 Not Available [facility] (Lab) [address], [place], [address], 06/02/2024 05:26:36 06/01/19 25 06/01/2024 CMP(C OMPRE HENSI VE METAB OLIC PANEL ) protein, total 7.1 g/dL 6.4-8. 3 Not Available [facility] (Lab) [address], [place], [address], 06/02/2024 05:26:36 06/01/19 25 06/01/2024 CMP(C OMPRE HENSI VE METAB OLIC PANEL ) albumin 4.2 g/dL 3.5-5. 0 Not Available [facility] (Lab) [address], [place], [address], 06/02/2024 05:26:36 06/01/19 25 06/01/2024 CMP(C OMPRE HENSI VE METAB OLIC PANEL ) ALT 13 units /L 9-43 Not Available [facility] (Lab) [address], [place], [address], 06/02/2024 05:26:36 06/01/19 25 06/01/2024 CMP(C OMPRE HENSI VE METAB OLIC PANEL ) alkaline phosphatase 58 units /L 34-104 Not Available [facility] (Lab) [address], [place], [address], 06/02/2024 05:26:36 06/01/19 25 06/01/2024 CMP(C OMPRE HENSI VE METAB OLIC PANEL ) AST 18 units /L 13-39 Not Available [facility] (Lab) [address], [place], [address], 06/02/2024 05:26:36 06/01/19 25 06/01/2024 CMP(C OMPRE HENSI VE METAB OLIC PANEL ) bilirubin, total 0.4 mg/dL 0.2-1. 2 Not Available [facility] (Lab) [address], [place], [address], 06/02/2024 05:26:36 06/01/19 25 06/01/2024 LIPID PANEL ,AMA (LDL- CALC) total cholesterol 171 mg/dL 0-199 Not Available [facility] (Lab) [address], [place], [address], 06/02/2024 05:26:36 06/01/1906/01/2024 LIPID PANEL ,AMA (LDL- CALC) triglyceride s 62 mg/dL 0-150 NCEP Refer ence Value s for Trigl yceri lynne: Khloe l: <150 mg/dL Borde rline High: 150 - 199 mg/dL High: 200 - 499 mg/dL Very High: >/= 500 mg/dL Not Available [facility] (Lab) [address], [place], [address], 06/02/2024 05:26:36 06/01/1906/01/2024 LIPID PANEL ,AMA (LDL- CALC) HDL cholesterol 78 mg/dL >40 Not Available [facility] (Lab) [address], [place], [address], 06/02/2024 05:26:36 06/01/1906/01/2024 LIPID PANEL ,AMA (LDL- CALC) LDL cholesterol 79 mg/dL 0-99 Cutof f value s recom kiesha d by the Natio nal Pau stero l Educa tion Progr am: TASHA ABLE: Pau stero l <200 mg/dL LDL <100 mg/dL BORDE RLINE : Pau stero l 200-2 39 mg/dL LDL 101-1 59 mg/dL HIGHE R RISK: Pau stero l >240 mg/dL LDL >160 mg/dL , HDL <40 mg/dL Not Available [facility] (Lab) [address], [place], [address], 06/02/2024 05:26:36 06/01/1906/01/2024 LIPID PANEL ,AMA (LDL- CALC) non-HDL cholesterol 93 mg/dL no refere nce range A reaso nable goal for non-H DL pau stero l is one that is 30 mg/dL highe r than the LDL pau stero l goal. Not Available [facility] (Lab) [address], [place], [address], 06/02/2024 05:26:36 06/01/1906/01/2024 LIPID PANEL ,AMA (LDL- CALC) chol/HDL ratio 2.2 . 0.0-5. 0 On September 15, 2022, [facility] labor atori bimal alva ed the equat ion for calcu rekha g estim ated low-d ensit y lipop rotei n-cho leste rol (LDL- C) from the Fried lisa equat ion to the Areli n/Hop carlos equat ion. This new equat ion is only valid for lipid panel s with trigl yceri lynne < 400 mg/dL . Studi es have demon strat ed that this new equat ion will impro ve the accur acy of LDL-C , espec ially in scena ontiveros when LDL-C afua ntrat ions are relat ively low (< 100 mg/dL ), trigl yceri lynne are eleva becky, or patie nt is non-f astin g. Refer ences : - Areli syed, Jamal Fermin, Chalo Mc , [facility] jony lang, Hunter Ely, Hunter godinez, Luke cottrell , and Mauricio Cam . 2013. Comp ariso n of a Novel Metho d vs the Fried lisa Equat ion for Estim ating Low-D ensit y Lipop rotei n Pau stero l Level s from the [facility] Lipid Profi le. KRYS: The Journ al of the Ameri can Medic al Assoc iatio n 310 (19): 2060- . - Emilio ku V, Vivi J, Gm ku A, Mariela M, Sarah e R, Sheryl ku E, [facility] RS, Tutu SR, Areli syed SS. Fast ing Versu s Nonfa sting and Low-D ensit y Lipop rotei n Pau stero l Accur acy. Circu latio n. 2017May 25;137 (1):1 0-19. Not Available [facility] (Lab) [address], [place], [address], 06/02/2024 05:26:36 06/01/1906/01/2024 TSH, REFLE X FREE T4 TSH 2.84 uIU/m L 0.30-5 .33 Not Available [facility] (Lab) [address], [place], [address], 06/02/2024 05:26:36 06/01/19 25 06/01/2024 HEMOG LOBIN A1C hemoglobin A1C 5.0 % 4.0-5. 6 The Ameri can Diabe russell Assoc iatio n recom mends that a prima ry goal of thera py shoul d be a HBA1C of < 7% and that physi cians shoul d reeva luate the treat ment regim en in patie nts with HBA1C value s consi stent ly > 8%. <5.7% Khloe l 5.7 - 6.4% Incre ased risk for diabe russell >=6.5 % Diagn ostic of diabe russell <7.0% Goal of thera py >8.0% Actio n sugge sted Not Available [facility] (Lab) [address], [place], [address], 06/02/2024 05:26:36 05/09/20 20 05/08/2020 MAMMO , scree rey, bilat eral No observ ation record ed. [facility] [address], [place], [address], 05/09/2020 15:59:30 05/09/20 20 05/08/2020 MAMMO , scree rey, bilat eral No observ ation record ed. [facility] [address], [place], [address], 05/09/2020 15:59:30 05/31/19 21 05/31/2020 MAMMO , diagn ostic , unila teral No observ ation record ed. [facility] [address], [place], [address], 05/31/2020 15:17:40 05/12/20 21 05/12/2021 MAMMO , scree rey, bilat eral No observ ation record ed. [facility] [address], [place], [address], 05/13/2021 15:34:42 07/17/19 23 07/17/2022 MAMMO , scree rey, bilat eral No observ ation record ed. [facility] [address], [place], [address], 07/24/2022 09:18:08 08/18/19 24 08/17/2023 MAMMO , scree rey, bilat eral No observ ation record ed. [facility] [address], [place], [address], 08/18/2023 15:34:07 08/19/19 25 08/18/2024 imagi ng/di agnos tic resul t No observ ation record ed. [facility] [address], [place], [address], 08/25/2024 12:52:05 Result Notes None recorded. Problems Name Problem SNOMED Code Status Onset Date Resolution Date Notes Provider Name and Address Organization Details Recorded Time Carbuncl e of skin and/or subcutan eous tissue 99980693 Completed 201304/10/2021 Carbuncl e;Record ed Elsewher e: No Locat ion: [facility] S ource: EHR Marketing Account Manager génesis: N Practi ce ID: [id number] Oscar lable Time: 02:00:00 PM Colleen Gresham [facility] OR - [facility] 17:00:35 Galactor christa not associat ed with childbir th [id number] Completed 201204/10/2021 Galactor christa not associat ed with childbir th;Recor ded Elsewher e: No Locat ion: [facility] S ource: EHR Marketing Account Manager génesis: N Practi ce ID: [id number] Socar lable Time: 04:15:00 PM Colleen Gresham [facility], [facility] [address] 17:00:[address] Concept Completed 201704/10/2021 Encntr for general adult medical exam w/o abnormal findings ;Recorde d Elsewher e: No Locat ion: Ryan lafleur [facility] S ource: EHR Marketing Account Manager génesis: N Kingati ce ID: [id number] Oscar lable Time: 08:30:00 AM Colleen Gresham [facility], [facility] 1 17:01:03 Vaginiti s and vulvovag initis Completed 201104/10/2021 Vaginiti s;Record ed Elsewher e: No Locat ion: Ryan lafleur [facility] S ource: EHR Marketing Account Manager génesis: N Kingati ce ID: [id number] Oscar lable Time: 08:30:00 AM Colleen Gresham [facility], [facility] [address] 17:01:[address] Concept Completed 201704/10/2021 Encntr for obstetrics gynecology md exam (general ) (routine ) w/o abn findings ;Recorde d Elsewher e: No Locat ion: Ryan lafleur [facility] S ource: EHR Marketing Account Manager génesis: N Kingati ce ID: [id number] Oscar lable Time: 08:30:00 AM Colleen ndiaye, [facility] 1 17:01:06 Screenin g for malignan t neoplasm of cervix Completed 201104/10/2021 Screenin g for malignan t neoplasm s of the cervix;R ecorded Elsewher e: No Locat ion: Ryan lafleur [facility] S ource: EHR Marketing Account Manager génesis: N Kingati ce ID: [id number] Oscar lable Time: 03:45:00 PM Colleen Gresham senthil, [facility] 1 17:00:59 Elevated blood-pr essure reading without diagnosi s of hyperten sujit [id number] Completed 201304/10/2021 Elevated blood pressure reading without diagnosi s of hyperten sujit;Rec orded Elsewher e: No Locat ion: [facility] S ource: EHR Marketing Account Manager génesis: Y Practi ce ID: [id number] Oscar lable Time: 11:00:00 AM Colleen ndiaye, [facility] 1 17:00:47 Reduced libido [id number] Completed 201804/10/2021 Decrease d libido;R ecorded Elsewher e: No Locat ion: [facility] S ource: EHR Marketing Account Manager génesis: N Practi ce ID: [id number] Oscar lable Time: 03:00:00 PM Colleen ndiaye, [facility] 1 17:00:57 Screenin g for malignan t neoplasm of rectum Completed 201704/10/2021 Encounte r for screenin g for malignan t neoplasm of rectum;R ecorded Elsewher e: No Locat ion: [facility] S ource: EHR Marketing Account Manager génesis: N Practi ce ID: 0001 Oscar lable Time: 08:30:00 AM Colleen ndiaye, [facility] 1 17:01:01 Methicil shyam resistan t Staphylo coccus aureus infectio n [id number] Completed 201404/10/2021 MRSA infectio n;Record ed Elsewher e: No Locat ion: [facility] S ource: EHR Marketing Account Manager génesis: N Practi ce ID: [id number] Oscar lable Time: 10:00:00 AM Colleen ndiaye, [facility] 17:00:55 Speciali zed medical examinat ion Completed 201104/10/2021 Gynecolo gical Examinat ion;Adi rded Elsewher e: No Locat ion: [facility] S ource: EHR Marketing Account Manager génesis: N Practi ce ID: [id number] Oscar lable Time: 03:45:00 PM Colleen ndiaye [facility] 1 17:01:08 Dysmenor christa [id number] Completed 201204/10/2021 Dysmenor christa;Rec orded Elsewher e: No Locat ion: Anil faiza [facility] S ource: EHR Marketing Account Manager génesis: N Kingati ce ID: 0001 Oscar lable Time: 02:15:00 PM Colleen ndiaye, [facility] 1 17:00:43 Furuncle [id number] Completed 201604/10/2021 Furuncle , unspecif ied;Adi rded Elsewher e: No Locat ion: [facility] S ource: EHR Marketing Account Manager génesis: Janeth Donatoti ce ID: 0001 Oscar lable Time: 04:00:00 PM Colleen Gresham [facility], [facility] 1 17:00:51 Family planning surveill ance Completed 201104/10/2021 Surveill ance of other contrace ptive method;R ecorded Elsewher e: No [facility] S ource: EHR Marketing Account Manager génesis: N Kingati ce ID: [id number] Oscar lable Time: 08:30:00 AM Colleen ndiaye [facility] 1 17:00:49 Cellulit is [id number] Completed 201304/10/2021 Cellulit is;Recor ded Elsewher e: No Locat ion: [facility] S ource: EHR Marketing Account Manager génesis: N Practi ce ID: [id number] Oscar lable Time: 11:15:00 AM Colleen ndiaye [facility] 1 17:00:38 Disorder of breast [id number] Completed 201204/10/2021 DISORDER S BREAST NEC;Adi rded Elsewher e: No Locat ion: [facility] S ource: EHR Marketing Account Manager génesis: N Practi ce ID: [id number] Oscar lable Time: 11:00:00 AM Colleen ndiaye, [facility] 17:00:41 Carbuncl e of trunk [id number] Completed 201304/10/2021 BOIL BACK BREAST CHEST FLANK GROIN;Pr actice ID: [id number] Colleen Greshamraheel ndiaye [facility] 17:00:37 Problem Notes None recorded. Procedures Surgical History Date Name Laterality Status Provider Name and Address Organization Details Recorded Time 06/11/19 24 Date of Last Colonoscopy completed [facility] 05/15/2024 09:08:49 05/11/20 23 Date of Last Pap Smear completed [facility] 05/15/2024 09:09:46 07/17/19 23 Date of Last Mammogram completed Coco Negrete [facility] 05/11/2023 15:27:17 04/23/20 16 [facility]/16[facility]2020 10:50:12 06/28/19 05 section completed Colleen [facility] 03/16/2020 10:49:09 05/24/18 98 Tonsillectomy completed [facility] 04/11/2021 10:28:49 Imaging Results None recorded. Procedure Notes None recorded. Medical Equipment None Reported. Allergies No known drug allergies Medications Name Sig Start Date Stop Date Status Note LastModified by Organization Details LastModified Time hydrocodo ne 5 mg-acetam inophen 325 mg tablet take 1 tablet by oral route every 6 hours as needed for pain 11/06 completed Prescrib ed Elsewher e: No Locat ion: [facility] M odify By: betsy Lafleur ncounter DateTime : 04/26/20 14 11:15:00 AM Not Available Not Available Not Available Diflucan 150 mg tablet take 1 tablet (150MG) by oral route once 06/22 completed Prescrib ed Elsewher e: No Locat ion: Ryan lafleur [facility] odify By: tomas mendiola DateTime : 02/19/20 12 01:13:06 PM Not Available Not Available Not Available doxycycli ne monohydra te 100 mg tablet take 1 tablet by oral route 2 times every day for 10 days 11/15 completed Prescrib ed Elsewher e: No Locat ion: Ryan lafleur [facility] odify By: juan mendiola DateTime : 11/07/19 15 10:00:00 AM Not Available Not Available Not Available Metrogel Vaginal 0.75 % (37.5 mg/5 gram) insert 1 applicat orful (37.5MG) by vaginal route every day at bedtime 06/22 completed Prescrib ed Elsewher e: No Locat ion: Ryan lafleur [facility] odify By: tomas mendiola DateTime : 02/22/20 12 03:58:10 PM Not Available Not Available Not Available betametha sone valerate 0.1 % topical cream APPLY CREAM TOPICALL Y TWICE DAILY NEEDED FOR RASH 05/11 completed Not Available Not Available Not Available Daypro 600 mg tablet take 2 Tablet (1200MG) by oral route every day 05/10 completed Prescrib ed Elsewher e: No Locat ion: Ryan [facility] odify By: brandon vasquesunter DateTime : 06/22/19 13 01:00:00 PM Not Available Not Available Not Available Cipro 500 mg tablet take 1 tablet by oral route every 12 hours 11/06 completed Prescrib ed Elsewher e: No [facility] By: betsy Lafleur ncounter DateTime : 04/26/20 14 11:15:00 AM Not Available Not Available Not Available Ortho Tri-Cycle n (28) 0.18 mg(7)/0.2 15mg(7)/0 .25 mg(7)-0.0 35 mg tablet take 1 tablet by oral route every day 06/22 completed Prescrib ed Elsewher e: No Locat ion: [facility] odify By: tomas mendiola DateTime : 11/17/19 12 08:30:00 AM Not Available Not Available Not Available Bactrim DS 800 mg-160 mg tablet take 1 tablet by oral route every 12 hours 07/06 completed Prescrib ed Elsewher e: No Locat ion: [facility] odify By: yoana bedoya DateTime : 03/16/20 17 04:00:00 PM Not Available Not Available Not Available NuvaRing 0.12 mg-0.015 mg/24 hr vaginal insert 1 vaginal ring by vaginal route every month leave in place for 3 weeks, remove for 1 week 04/24 completed Prescrib ed Elsewher e: No Locat ion: [facility] odify By: amkkeiry bedoya DateTime : 05/10/20 13 04:15:00 PM Not Available Not Available Not Available bupropion HCl XL 300 mg 24 hr tablet, extended release Take 1 tablet every day by oral route for 90 days. active Not Available Not Available No t Available bupropion HCl XL 150 mg 24 hr tablet, extended release TAKE 1 TABLET BY MOUTH DAILY (TOTAL 450MG DAILY) active Not Available Not Available No t Available nitrofura ntoin monohydra te/macroc rystals 100 mg capsule TAKE 1 CAPSULE BY MOUTH EVERY 12 HOURS WITH FOOD FOR 5 DAYS 05/11 completed Not Available Not Available Not Available [place] 3 active Not Available Not Avail able Not Available multivita min active Not Available Not Available Not Available FeroSul 325 mg (65 mg iron) tablet TAKE 1 TABLET BY MOUTH WITH BREAKFAS T. PLEASE TAKE YOUR IRON 2 HOURS BEFORE OR 2 HOURS AFTER TAKING CALCIUM 05/11 completed Not Available Not Available Not Available B12 active Not Available Not Availa ble Not Available Vitals Date Recorded Body height Body mass index (BMI) Body weight Systolic And Diastolic Provider Name and Address Organization Details Last Updated DateTime 03/15/2020 162.56 cm 28 kg/m2 85787.56 g 156/91 mm[Hg] Colleen Gresham [facility] 03/15/2020 15:00:37 Date Recorded Body height Body mass index (BMI) Body weight Systolic And Diastolic Provider Name and Address Organization Details Last Updated DateTime 04/11/2021 162.56 cm 30.7 kg/m2 61008.03 g 134/83 mm[Hg] Colleen Gresham [facility] 04/11/2021 10:26:09 Date Recorded Systolic And Diastolic Provider Name and Address Organization Details Last Updated DateTime 04/29/2022 126/76 mm[Hg] Agatha Lane, [facility]- [address], [place], [address], [facility] 04/30/2022 21:07:52 Date Recorded Body height Body mass index (BMI) Body weight Provider Name and Address Organization Details Last Updated DateTime 04/29/2022 162.56 cm 33.2 kg/m2 60806.76 g Elodia Barnes [facility] 04/29/2022 15:46:00 Date Recorded Body height Body mass index (BMI) Body weight Systolic And Diastolic Provider Name and Address Organization Details Last Updated DateTime 05/11/2023 162.56 cm 35.4 kg/m2 66381.03 g 131/83 mm[Hg] Coco Negrete [facility] 05/11/2023 15:34:27 Date Recorded Body height Body mass index (BMI) Body weight Systolic And Diastolic Provider Name and Address Organization Details Last Updated DateTime 05/15/2024 162.56 cm 35.3 kg/m2 03103.31 g 127/79 mm[Hg] Marci Hyun [facility] 05/15/2024 09:14:07 Social History Question Answer Notes LastModified by Organizat ion Details LastModified Time Tobacco Smoking Status Never Smoker Fiona ndiaye, [facility] 05/11/2023 15:30:18 Do You Have An Advance Directive? No Information n ot available 04/11/2021 Are You Blind Or Do You Have Difficulty Seeing? No [email or web address] Information n ot available 04/11/2021 What Is Your Level Of Caffeine Consumption? Moderate [email or web address] Information not available 04/11/2021 How Much Tobacco Do You Chew? None [email or web address] Information not available 04/11/2021 In The 14 Days Before Symptom Onset, Have You Had Close Contact With A Laboratory-confirm ed COVID-19 While That Case Was Ill? No Information n ot available 04/11/2021 In The 14 Days Before Symptom Onset, Have You Had Close Contact With A Person Who Is Under Investigation For COVID-19 While That Person Was Ill? No Information not available 04/11/2021 Have You Been To An Area Known To Be High Risk For COVID-19? No [email or web address] Information not available 04/11/2021 Are You Deaf Or Do You Have Serious Difficulty Hearing? No [email or web address] Information not available 04/11/2021 What Type Of Diet Are You Following? REGULAR Information n ot available 04/11/2021 What Is The Highest Grade Or Level Of School You Have Completed Or The Highest Degree You Have Received? [id number] [email or web address] Information not available 04/11/2021 Are There Any Guns Present In Your Home? Yes [email or web address] Information not available 04/11/2021 What Was The Date Of Your Most Recent Tobacco Screening? 04/11/2021 [email or web address] Information not available 05/11/2023 Do You Use Protection During Sex? No [email or web address] Information not available 04/11/2021 Do You Use Your Seat Belt Or Car Seat Routinely? Yes [email or web address] Information not available 04/11/2021 Do You Have Smoke And Carbon Monoxide Detectors In Your Home? Yes [email or web address] Information not available 04/11/2021 How Much Tobacco Do You Smoke? No [email or web address] Information not available 03/16/2020 Do You Use Sunscreen Routinely? Yes [email or web address] Information not available 04/11/2021 Have You Used IV Drugs? No [email or web address] Information not available 04/11/2021 Do You Have Difficulty Walking Or Climbing Stairs? No [email or web address] Information not available 05/11/2023 Sex: Unknown Functional Status Question Answer Note LastModified by Organizat ion Details LastModified Time Do you use any illicit or recreational drugs? No [email or web address] Information not available 04/11/2021 What is your level of alcohol consumption? None Information not available 04/11/2021 Do you or have you ever used smokeless tobacco? Never used smokeless tobacco [id number] Information not available 05/11/2023 Are you able to walk? YESWOREST [email or web address] Information not available 04/11/2021 Are you able to care for yourself? 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 No [email or web address] Information not available 05/11/2023 Do you or have you ever used e-cigarettes or vape? Never used electronic cigarettes [email or web address] Information not available 05/11/2023 What is your exercise level? Occasional [email or web address] Information not available 04/11/2021 Mental Status Question Answer Note LastModified by Organization D etails LastModified Time Do you feel stressed (tense, restless, nervous, or anxious, or unable to sleep at night)? [id number] [email or web address] Information not available 04/11/2021 Family History Relationship Description Onset Age of this Age Resolved Age Notes LastModified by Organization Details LastModified Time Paternal Grandfather Malignant tumor of colon [email or web address] Not available 03/16 10:47:33 Maternal Grandmother Malignant tumor of breast [email or web address] Not available 03/16 10:47:53 Brother Asthma [email or web address] Not availabl e 03/16/2020 10:48:02 Father Polyp of colon Not available 2023 08:56:52 Notes:Brother: Asthma Matern al grandmother: Cancer, breast, Cancer, breast Paternal grandfather: Cancer, colon, Cancer, colon Medical History Condition Response Allergies (Food, seasonal, environmental ) Y Other N Breast Cancer N Drug/Latex Allergies/Reactions N Blood Transfusion N Dermatologic Disorders N Lung Disease N Defects or Inherited Disease N Breast Problem N Gestational Diabetes N Hematologic disorders N Anesthesia Complications N History of STI N Deep Vein Thrombosis N Polycystic ovary syndrome N Anxiety Disorder Y Autoimmune disease N Arthritis N Infertility N Polyps N Acid Reflux (GERD) N History of abnormal pap N Cancer N Stroke N Varicosities N Neurologic/Epilepsy N Endometriosis N High Cholesterol N Headaches N Fibromyalgia N Kidney Disease N Heart Problems N Kidney or Bladder Problems N Thyroid Problems N GI Problems Y Eating Disorder N Anemia N Art (IVF or FET) N Psychiatric Illness N Ovarian Cancer N Diabetes N Pulmonary (TB, Asthma) N Hepatitis/Liver Disease N No Past Medical History N Eczema N Urinary Tract Infection N Abuse/Domestic Violence N Asthma N Trauma/Violence N Depression/ depression Y Heart Disease N Pre-Eclampsia N Hypertension N Osteoporosis N Thrombophilias N Gynecological History Statement/Question Response Flow Moderate Date of Last Mammogram 07/17/2022 Date of LMP 05/15/2024 On BCP's at Conception? N N Was last menstrual period normal Y STIs/STDs N Current Control Method None Are cycles usually normal Y Date of Last Colonoscopy 06/11/2023 Frequency of Cycle (Q days) 28 Sexually Active? N Partner Vasectomy Age of first menstrual cycle 13 Date of Last Pap Smear 05/11/2023 Sexual Problems? Y Desired Control Method Partner Vas ectomy LMP Definite N Obstetrics History GPAL:G 2 P 1 0 1 1 Type Value Full Term 1 Induced 1 Living 1 Total 2 Past Encounters Encounter ID Performer Location Encounter Start Date Encounter Closed Date Diagnosis/Indication Diagnosis SNOMED-CT Code Diagnosis ICD10 Code Diagnosis Note [id number] Jazmyn Kim [place] [id number],[place] [address] 03/15/2020 14:13:12 03/15/2020 17:02:41 Gynecologic examination 56228318 Z01.419 Fatigue 97575392 R53.83 [id number] Jazmyn Kim [facility] [address] [address] 04/11/2021 09:54:36 04/11/2021 11:39:51 Anxiety 43253216 F41.9 Fatigue 42733052 R53.83 Gynecologi c examination 79696937 Z01.[id number] [facility] [address] [address] 04/29/2022 15:37:30 05/01/2022 14:40:42 Gynecologic examination 17436510 Z01.419 Suggested Calcium with Vitamin D 1200-1500m g daily. Patient advised to get an annual flu shot in the fall and she could obtain at [facility] or [facility] care clinic. Also to obtain TDap vaccinatio n if you have not had one in the last 10 years. Recommend yearly mammograms . Encouraged monthly self breast exams. Encourage safe sexual practices, to use condoms and limit partners if not already in a monogamous relationsh ip. Engage in daily exercise of low impact aerobic exercise 45-60 minutes 4-5 times weekly. Avoid tobacco and illicit drugs as well as using moderation with alcohol intake less than 1-2 8 oz beverages daily. This lifestyle behavior pattern will lead to less health conditions and longer life span. If BMI greater than 25 weight watchers or dietary consult advised. All questions have been answered. Patient appears to understand informatio n, but if you have any questions please call or respond to this email. Pap/hpv sentSTD Screen declinedGe netic Screen discussedC olon Screen naDexa Screen naRoutine Labs ordered, PCP ref givenMammo ordered Screening mammography 24 148060 Z12.31 Adult heal th examination 874222079 Z00.00 Updated Mixed anxi ety and depressive disorder 865793848 F41.8 Generalize d anxiety disorder 06957798 F41.1 RF sentStable on current dosageNeg suicidal ideations or thoughts of self harm Condyloma acuminatum of the anogenital region 274978153 A63.0 left gluteal lateral to interglute al cleft [id number] , [facility] [address] [address] 05/11/2023 15:29:40 05/11/2023 16:12:23 Gynecologic examination 26045220 Z01.419 Z11.51 Suggested Calcium with Vitamin D 1200-1500m g daily. Patient advised to get an annual flu shot in the fall and she could obtain at [facility] or [facility] care clinic. Also to obtain TDap vaccinatio n if you have not had one in the last 10 years. Recommend yearly mammograms . Encouraged monthly self breast exams. Encourage safe sexual practices, to use condoms and limit partners if not already in a monogamous relationsh ip. Engage in daily exercise of low impact aerobic exercise 45-60 minutes 4-5 times weekly. Avoid tobacco and illicit drugs as well as using moderation with alcohol intake less than 1-2 8 oz beverages daily. This lifestyle behavior pattern will lead to less health conditions and longer life span. If BMI greater than 25 weight watchers or dietary consult advised. All questions have been answered. Patient appears to understand informatio n, but if you have any questions please call or respond to this email. 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 Patient will come back in a year unless there are new symptoms. Suggest Calcium with Vitamin D if not eating in diet. Patient advised to get annual flu shot. Recommend yearly physicals and perform monthly breast exams. Genetic testing is available for patients with family history of cancer. Engage in safe sexual practices, use condoms. Encouraged to have daily exercise. Avoid tobacco and illicit drugs, moderation of alcohol. If BMI greater than 25 dietary consult advised. If you have any questions please call or email. mammogram- order given, pt to schedule colon cancer screening - UTD PCP DEXA scan- n/a Pap smear- UTD (2022- WN), will repeat in 2025 per ASCCP guidelines laboratory evaluation - PCP STI testing - declined Generalize d anxiety disorder 10867122 F41.1 Patient doing well on medication for anxiety, on 450 mg total. Denies adverse effects, denies SI/HI.Refi lls x 1 year sent. Mixed anxi ety and depressive disorder 069847432 F41.8 Screening mammography 24 870300 Z12.31 Health Concerns Section Related Observation LastModified by Organization Detai ls LastModified Time None Recorded Concern Status LastModified by Organization Details LastModified Time None Recorded Advance Directives Directive N: Payers Insurance Date Sequence Insurance Name Policy Number Policy Victoria Covered Member ID Victoria Member ID Guarantor Name 05/11/2023 1 [facility] [id number] Kaylee Esteban [id number] Kaylee Souza Carlito 05/11/2023 1 [place] [id number] Kaylee Souza Carlito [id number] Kaylee Souza Carlito 05/12/2024 1 [employer] [id number] Hayes Esteban [id number] Kaylee Esteban Notes Date Note Type Note Provider Name and Address Organization Details Recorded Time 03/15/2020 text/html Annual GYNReport ed bypatient.Menstrua l cycle:Normal menses Urinary symptoms:No hematuria; No incontinence Vulva:No genital lesion Vagina:Normal vaginal discharge Breast:No breast pain; No breast lump; No nipple discharge Sexual complaints:No sexual complaints; No pain during intercourse; Normal libido Menopausal Symptoms:No menopausal symptoms; Normal vaginal lubrication Psychological symptoms:No depression; No anxiety; No PMDDNotes:no bcm, elevated bp stressful at home, unfaithful starting divorce process. cycles irregular, precautions reviewed Jazmyn Kim CNM [address], [place], [address], [facility] 03/15/2020 15:11:59 04/11/2021 text/html Annual GYNReport ed bypatient.Menstrua l cycle:Normal menses Urinary symptoms:No hematuria; No incontinence Vulva:No genital lesion Vagina:Normal vaginal discharge Breast:No breast pain; No breast lump; No nipple discharge Sexual complaints:No sexual complaints; No pain during intercourse; Normal libido Menopausal Symptoms:No menopausal symptoms; Normal vaginal lubrication Psychological symptoms:No depression; No anxiety; No PMDD; tx with wellbutrin Preventive measures:Encourage self breast examination; Encourage regular exercise; Encourage no tobacco use; Encourage regular mammograms starting age 40 Jazmyn Kim CNM [address], [place], [address], [facility] 04/11/2021 11:37:16 04/29/2022 text/html Annual GYNReport ed bypatient.Menstrua l cycle:Normal menses Urinary symptoms:No hematuria; No incontinence Vulva:No genital lesion Vagina:Normal vaginal discharge Breast:No breast pain; No breast lump; No nipple discharge Current Contraception:Sati sfied with current contraception; Partner had vasectomy Sexual complaints:No sexual complaints; No pain during intercourse; Normal libido Menopausal Symptoms:No menopausal symptoms; Normal vaginal lubrication Psychological symptoms:No depression; No anxiety; No PMDD Preventive measures:Encourage self breast examination; Encourage regular exercise; Encourage no tobacco use; Encourage regular mammograms starting age 40; Followed with yearly pap smears; [facility]eds to schedule [facility] [address], [place], [address], [facility] 04/30/2022 21:08:00 05/11/2023 text/html Annual GYNReport ed bypatient.History: no gynecologic complaints Menstrual cycle:Normal menses Urinary symptoms:No hematuria; No incontinence Vulva:No genital lesion Vagina:Normal vaginal discharge Breast:No breast pain; No breast lump; No nipple discharge Current Contraception:Sati sfied with current contraception; Partner had vasectomy Sexual complaints:No sexual complaints; No pain during intercourse; Normal libido Menopausal Symptoms:No menopausal symptoms; Normal vaginal lubrication Psychological symptoms:No depression; No anxiety; No PMDD Preventive measures:Encourage self breast examination; Encourage regular exercise; Encourage no tobacco use; Encourage regular mammograms starting age 40; Followed with yearly pap smears; Needs to schedule mammogram; Up to date on colonoscopy screening ANTELMO Mcguire [address], [place], [address], [facility] 05/11/2023 16:04:27 05/15/2024 text/html Annual GYNReport ed bypatient.Menstrua l cycle:Normal menses Urinary symptoms:No hematuria; No incontinence Vulva:No genital lesion Vagina:Normal vaginal discharge Breast:No breast pain; No breast lump; No nipple discharge Current Contraception:Part ner had vasectomy Sexual complaints:No sexual complaints; No pain during intercourse; Normal libido Menopausal Symptoms:No menopausal symptoms; Normal vaginal lubrication Psychological symptoms:No depression; No anxiety; No PMDD Preventive measures:Encourage self breast examination; Encourage regular exercise; Encourage no tobacco use; Encourage regular mammograms starting age 40 Patient presents for annual well woman exam. Patient denies concerns today. Marci Purvis senthil [facility] 05/15/2024 09:37:18 OBGyn Episode Ob Episode Information Episode Created Date Number of Fetuses Patient Bloodtype Patient rh Status Prepregnancy Weight lbs Domestic Partner Domestic Partner Phone Father Name Frame Stylist Status 03/16/20 20 1 CLOSED Fetus Data First Name Last Name Admitted to NICU Weight (g) Sex Living Outcome Pediatric Complications Fetus ID Race Codes Race Delivery Type , Induced 5613 Unruly Calculation Initial Unruly Date Initial Exam Date Initial Exam Provider Initial Ultrasound Date Last Menstrual Period Date Ultra Sound Weeks Gestation 0 Eighteen To Twenty Week Unruly Update Ultra Sound Date Fundal Height At Umbil Quickening Date Ultra Sound Latest Weeks Gestation Final Unruly Confirmed By Final Unruly Confirmed Date Final Unruly Date Ultra Sound Latest Days Gestation 0 0 Menstrual History Last Menstrual Date Menses Monthly On Bcp Conception Prior Menses Frequency Hcg Plus Date Menarche Onset Age Delivery Information Delivery Date Delivery Type Labor Anesthesia Weeks Gestation Incision Type Labor Labor Length Hrs Delivered By Post Complications Tubal Sterilization Discharge Date Comments 2008 induced Discharge Information Feeding Method Contraceptive Method Maternal HG B and HCT Levels Ob Episode Information Episode Created Date Number of Fetuses Patient Bloodtype Patient rh Status Prepregnancy Weight lbs Domestic Partner Domestic Partner Phone Father Name Frame Stylist Status 03/16/20 20 1 CLOSED Fetus Data First Name Last Name Admitted to NICU Weight (g) Sex Living Outcome Pediatric Complications Fetus ID Race Codes Race Delivery Type 3316.66 [id number] F Full Term 5614 Primary Unruly Calculation Initial Unruly Date Initial Exam Date Initial Exam Provider Initial Ultrasound Date Last Menstrual Period Date Ultra Sound Weeks Gestation 0 Eighteen To Twenty Week Unruly Update Ultra Sound Date Fundal Height At Umbil Quickening Date Ultra Sound Latest Weeks Gestation Final Unruly Confirmed By Final Unruly Confirmed Date Final Unruly Date Ultra Sound Latest Days Gestation 0 0 Menstrual History Last Menstrual Date Menses Monthly On Bcp Conception Prior Menses Frequency Hcg Plus Date Menarche Onset Age Delivery Information Delivery Date Delivery Type Labor Anesthesia Weeks Gestation Incision Type Labor Labor Length Hrs Delivered By Post Complications Tubal Sterilization Discharge Date Comments 5 38 Discharge Information Feeding Method Contraceptive Method Maternal HG B and HCT Levels
[2024-11-23 15:36] VITALS: BP 145/86; PULSE 69; RESP 20; TEMP 37.6; O2SAT 100
--- NOTE | 2024-11-23 15:49 | ED.SKABFB ---
HPI - Skin/Abscess/Foreign Bdy General Chief complaint: Skin/Abscess/Foreign Body Stated complaint: sue rash from bandaid Time Seen by Provider: 11/23/24 15:49 Source: patient Mode of arrival: ambulatory Limitations: no limitations History of Present Illness HPI narrative: 49 female presented for complaint of a red itchy rash in the shape of Band-Aids to the left sue. Onset about 4 days. Says she was seen by pcp on 11/15, and noticed itching to the area but did not have redness. Pt was prescribed triamcinolone cream yesterday, and started Benadryl. Says the rash started blistering today. The bandaids were originally placed on 11/09 and 11/10 only. Has not had bandaids since then. Additionally, the bandaids were placed for a skin abrasion which she sustained doing a box jump on 11/09. Says she missed the box and struck the foot on the box and scraped the leg. Currently reports ankle pain, swelling. Says the bruising is resolved. Denies concern for the skin abrasion, says it is healing. Related Data Home Medications ?Medication ?Instructions ?Recorded ?Confirmed ?Last Taken ?Type cetirizine 10 mg tablet (Zyrtec) 10 mg PO DAILY PRN Sinus Symptoms 05/20/22 11/15/24 Unknown History mecobalamin (vitamin B12) 1,000 1,000 mcg PO DAILY 05/20/22 11/15/24 Unknown History mcg chewable tablet multivitamin (Daily Multi-Vitamin 1 tablet PO DAILY 05/20/22 11/15/24 Unknown History tablet) omega-3 fatty acids 500 mg capsule 500 mg PO DAILY 02/12/23 11/15/24 Unknown History bupropion HCl 150 mg 24 hr tablet, mg PO 11/23/24 Unknown History extended release bupropion HCl 300 mg 24 hr tablet, mg PO 11/23/24 Unknown History extended release Allergies Allergy/AdvReac Type Severity Reaction Status Date / Time No Known Allergies Allergy Mild Verified 11/23/24 15:41 Review of Systems Review of Systems: CONSTITUTIONAL: Denies body aches, fever, chills, or sweats. EYES: Denies visual changes, redness, or discharge. ENT: Denies rhinorrhea, congestion CARDIOVASCULAR: Denies chest pain, palpitations, or edema. RESPIRATORY: Denies cough or dyspnea. GASTROINTESTINAL: Denies abdominal pain, nausea, vomiting, or diarrhea. SKIN: per HPI MUSCULOSKELETAL: reports left ankle pain and swelling NEUROLOGIC: Denies headache, numbness, tingling, or weakness. [facility] Past Medical History Medical History Other obesity Acute sinusitis, unspecified Surgical History Surgical History History of weight loss surgery (~2016) Family History Family History Grandparent Carcinoma of colon Breast cancer Mother Acute myocardial infarction Social History Social History (Updated 11/15/24 @ 10:58 by Azeb Workman, Student) Social History: Caffeine- coffee Smoking status: Never smoker Alcohol intake: current Alcohol use details: rare occasional Substance use: never Substance use type: does not use Lack of Transportation: No Lack of Food: Never True Current Housing: I Have Housing Concerned About Future Housing: No Difficulty Paying Gas/Electric Bills: No Difficulty Paying for Meds: No Currently Unemployed: No Education: High School Diploma/GED Difficulty w/ Childcare or Family Care: No Living arrangements: with family Spiritual care concerns: No Comments At time of signature, I have reviewed and agree with nursing past medical, surgical, social and family history unless otherwise noted. Please see nursing chart for further information. There is no relevant family history pertinent to the presenting complaint Exam Narrative: GENERAL: Well-appearing ENT: Mucous membranes moist. Oropharynx without edema, erythema or lesions. NECK: Supple. No lymphadenopathy CHEST: Clear to auscultation. HEART: Regular rate and rhythm. SKIN: Warm, dry. Left sue with healing scabbed abrasion approx 2cm. No drainage or induration. Left sue with erythematous papular rash 14x6cm in the distinct shape of bandaids to proximal and distal sue. Distal site with intact vesicles noted. MUSC: left ankle swelling, tender with palpation over dorsal/proximal surface of foot. No bruising or erythema. NEURO: Alert and oriented x3. Course Course Emergency Course: Patient is aware of diagnosis, understands and agrees to treatment plan. Anticipatory guidance given. Patient agrees to follow-up as directed and is aware of reasons to seek care at the emergency department. Portions of this record may have been created with voice recognition software Level of Care: Express Care Visit Vital Signs Vital signs: Vital Signs Temperature 99.7 F H 11/23/24 15:36 Pulse Rate 69 11/23/24 15:36 Respiratory Rate 20 11/23/24 15:36 Blood Pressure 145/86 H 11/23/24 15:36 Pulse Oximetry 100 11/23/24 15:36 Oxygen Delivery Room Air 11/23/24 15:36 Temperature 99.7 F H 11/23/24 15:36 Pulse Rate 69 11/23/24 15:36 Respiratory Rate 20 11/23/24 15:36 Blood Pressure 145/86 H 11/23/24 15:36 Pulse Oximetry 100 11/23/24 15:36 Oxygen Delivery Room Air 11/23/24 15:36 Reviewed MDM - Skin/Abscess/Foreign Bdy MDM Narrative Medical decision making narrative: Discussed physical exam findings and x-ray. Ameya wrap applied to the ankle. Nonstick dressing applied to the rash. Patient will continue her previously prescribed triamcinolone cream and Benadryl. Rx for cephalexin and short course prednisone. Advised supportive measures and signs/symptoms to go to the ER. Pt is appropriate for outpt treatment and f/u. Differential Diagnosis Differential diagnosis: Likely abscess of skin or subcutaneous tissue, viral exanthem, dermatophytosis, urticaria, herpes zoster, cellulitis, eczema, insect bites, impetigo and contact dermatitis Imaging Data Radiologist's impression: Patient: Kaylee Esteban I : 1975 MR#: [id number] Age: 49 Acct:[id number] Loc: [facility] ADM Date: 11/23/24Attending Dr: SHOSHANA ankle LT min 3V Ordering provider: Kinjal Viveros APRN History: . pain injury 2 weeks . Comparison: None. FINDINGS: BONES: No acute fracture or dislocation. JOINT SPACES: The ankle mortise is normal. SOFT TISSUES: Normal. Calcaneal spur. IMPRESSION: No acute osseous abnormality left ankle. Discharge Plan Discharge Clinical Impression: Contact dermatitis, Ankle sprain Patient Disposition: Home Condition: Stable Instructions: Ankle Sprain (ED), Contact Dermatitis (ED) Additional Instructions: Rest and elevate the left leg; bear weight as tolerated Apply ice 15-20 minute intervals several times a day Keep it wrapped with AMEYA or use a soft ankle splint Tylenol 1000mg every 8 hours as needed Keep the area clean and dry - cleanse with warm water and mild soap and allow to fully dry. Ok to apply neosporin to the site Keep it open to air (no bandages unless at risk for contamination. If you must cover it use a non-adhesive bandage) Watch for worsening symptoms including pain, redness, swelling, streaking, pus/drainage, fever. Go to the ER with any of these symptoms or concerns. Follow up with primary care provider as needed. Patient Language: Guamanian Prescriptions: New prednisone 20 mg tablet 40 mg PO DAILY 3 Days Qty: 6 0RF cephalexin 500 mg capsule 500 mg PO Q12H 5 Days Qty: 10 0RF No Action bupropion HCl 300 mg tablet extended release 24 hr PO bupropion HCl 150 mg tablet extended release 24 hr PO multivitamin [Daily Multi-Vitamin] Tablet 1 tablet PO DAILY cetirizine [Zyrtec] 10 mg tablet 10 mg PO DAILY PRN (Reason: Sinus Symptoms) mecobalamin (vitamin B12) 1,000 mcg tablet,chewable 1,000 mcg PO DAILY omega-3 fatty acids 500 mg capsule 500 mg PO DAILY triamcinolone acetonide 0.1 % cream 1 applic topical BID PRN (Reason: rash) Qty: 30 0RF Follow-up/Referrals: Doreen Buchanan NP [Primary Care Provider] - Time of Disposition: 16:33
== END 2024-11-23 16:43 | disposition home or self-care (01) ==
PROVIDERS: Emergency Provider Nurse Practitioner Family; PCP Nurse Practitioner
DX: L25.9 Unspecified contact dermatitis, unspecified cause (principal); S93.402A Sprain of unspecified ligament of left ankle, initial encounter; W22.8XXA Striking against or struck by other objects, initial encounter; E66.89 Other obesity not elsewhere classified; Z68.41 Body mass index [BMI] 40.0-44.9, adult
CPT/HCPCS: 73610; 99213; G0463